=== PATIENT | male | born 1980 | race American Indian/Alaskan Native ===

== ENCOUNTER 2017-09-30 09:21 | Emergency (ER) | payer OTHER ==
[2017-09-30] MEDS ORDERED: Sodium Chloride 0.9% 1,000 ML IV ONE (10:02)
[2017-09-30] MEDS ORDERED: Sodium Chloride 0.9% 1,000 ML ONE (10:28)
[2017-09-30 10:40] LABS: BASO % 0.1 % (0.0-2.0); EOS # 0.1 K/uL (0.0-0.7); EOS % 1.8 % (0.0-4.0); LYMPH # 2.6 K/uL (1.0-4.3); LYMPH % 49.9 % (20.0-40.0); MEAN CORPUSCULAR HGB CONC 32.6 g/dL (33.0-37.0); MEAN PLATELET VOLUME 8.4 fL (7.2-11.7); MONO # 0.4 K/uL (0.0-0.8); MONO % 7.1 % (0.0-10.0); NEUT # 2.1 K/uL (1.8-7.0); NEUT % 41.1 % (50.0-75.0); NRBC % 0.2 % (0.0-2.0); RBC 4.82 Mil/uL (4.40-5.90); RED CELL DISTRIBUTION WIDTH 12.7 % (11.5-14.5); WHITE BLOOD COUNT 5.2 K/uL (4.8-10.8)
[2017-09-30 10:47] LABS: URINE BILIRUBIN NEGATIVE (NEGATIVE); URINE BLOOD NEGATIVE (NEGATIVE); URINE CLARITY Clear (Clear); URINE COLOR Yellow (YELLOW); URINE GLUCOSE (UA) NORMAL (Normal); URINE LEUKOCYTE ESTERASE NEG Leu/uL (Negative); URINE PROTEIN NEGATIVE (NEGATIVE); URINE UROBILINOGEN NORMAL mg/dL (0.2-1.0)
[2017-09-30 10:51] LABS: ALB/GLOB RATIO 1.1 (1.0-2.1); ALBUMIN 4.1 g/dL (3.5-5.0); ALT/SGPT 9 U/L (21-72); AST/SGOT 26 U/L (17-59); BLOOD UREA NITROGEN 11 mg/dL (9-20); CALCIUM 9.3 mg/dl (8.6-10.4); GFR AFRICAN-AMERICAN > 60; GFR NON-AFRICAN AMERICAN > 60; LIPASE 52 U/L (23-300)
[2017-09-30] MEDS ORDERED: Iodixanol 320 MG/ML 100 ML BOTTLE IV ONE (11:33)
[2017-09-30 12:21] VITALS: BP 128/81; PULSE 89; RESP 18; TEMP 98.9; O2SAT 100
--- NOTE | 2017-09-30 12:52 | CT ---
PROCEDURE: CT Abdomen and Pelvis with contrast HISTORY: RLQ tenderness COMPARISON: None. TECHNIQUE: Following the intravenous administration of iodinated contrast material, a CT examination of the abdomen and pelvis performed from the domes of the diaphragms to the symphysis pubis with reformatted datasets provided not only axial but also sagittal and coronal planes. Oral contrast was not administered as per referring physician request. Contrast dose: Visipaque 320, 100 cc Radiation dose: Total exam DLP = 404.98 mGy-cm. This CT exam was performed using one or more of the following dose reduction techniques: Automated exposure control, adjustment of the mA and/or kV according to patient size, and/or use of iterative reconstruction technique. FINDINGS: LOWER THORAX: Unremarkable. LIVER: Mild diffusely diminished density seen throughout the liver are compatible with hepatic steatosis. No definite mass or intrahepatic biliary dilatation is identified. GALLBLADDER AND BILE DUCTS: Unremarkable. PANCREAS: Unremarkable. No gross lesion or ductal dilatation. SPLEEN: Unremarkable. ADRENALS: Unremarkable. No mass. KIDNEYS AND URETERS: Unremarkable. No hydronephrosis. No solid mass. VASCULATURE: Unremarkable. No aortic aneurysm. BOWEL: The stomach appears unremarkable. There is no bowel obstruction appreciated obstruction. Descending colon appears collapsed with a normal caliber appendix. Thickness of the ascending colon wall is difficult to evaluate. Relatively prominent submucosal fat may indicate chronic inflammatory process. Trace pericecal fatty streaking is appreciated approaching the appendix. Appendicitis is not favored. The appendix is not distended and there is no mural thickening associated. Clinically correlate further nevertheless. PERITONEUM: As above. No free intraperitoneal gas or ascites. LYMPH NODES: Unremarkable. No enlarged lymph nodes. BLADDER: Unremarkable. REPRODUCTIVE: Unremarkable. BONES: No acute fracture. OTHER FINDINGS: None. IMPRESSION: Collapse of the ascending colon limits evaluation of potential mural thickening. Mildly prominent submucosal fat at the ascending colon may indicate chronic inflammatory bowel disease. Trace streaky changes seen in the pericecal fat inferiorly, approaching the appendix, but without overt appendicitis pattern. Appendix is normal in caliber with no mural thickening. Consider potential limited segmental colitis proximal ascending colon. Clinical correlation is nevertheless advised. Remainder the examination appears remarkable only for hepatic steatosis.
--- NOTE | 2017-09-30 13:33 | C.PDOC ---
History Of Present Illness 37 y/o male presents to ED with complaints of right sided abdominal pain since this morning. Patient states having bowel movement aggravated pain but reports at this point pain resolved. Patient denies blood in stool, nausea, vomiting, hematuria, fever, dysuria or any other complaints at this time. Chief Complaint (Nursing): Abdominal Pain History Per: Patient History/Exam Limitations: no limitations Onset/Duration Of Symptoms: Hrs Current Symptoms Are (Timing): Still Present Location Of Pain/Discomfort: RUQ, RLQ Past Medical History Reviewed: Historical Data, Nursing Documentation, Vital Signs Vital Signs: Last Vital Signs Temp 98.9 F 09/30/17 12:19 Pulse 89 09/30/17 12:19 Resp 18 09/30/17 12:19 BP 128/81 09/30/17 12:19 Pulse Ox 100 09/30/17 13:38 - Medical History PMH: No Chronic Diseases Surgical History: No Surg Hx Family History: States: No Known Family Hx - Social History Hx Alcohol Use: Yes Hx Substance Use: No - Immunization History Hx Tetanus Toxoid Vaccination: No Hx Influenza Vaccination: No Hx Pneumococcal Vaccination: No Review Of Systems Constitutional: Negative for: Fever, Chills Gastrointestinal: Positive for: Abdominal Pain. Negative for: Nausea, Vomiting Genitourinary: Negative for: Dysuria, Hematuria Skin: Negative for: Rash Physical Exam - Physical Exam Appears: Non-toxic, No Acute Distress Skin: Warm, Dry, No Rash Head: Atraumatic, Normacephalic Oral Mucosa: Moist Neck: Normal ROM, Supple Cardiovascular: Rhythm Regular Respiratory: Normal Breath Sounds, No Rales, No Rhonchi, No Wheezing Gastrointestinal/Abdominal: Soft, No Tenderness, No Guarding, No Rebound Back: No CVA Tenderness Extremity: Normal ROM, Capillary Refill (<2 seconds) Neurological/Psych: Oriented x3, Normal Speech ED Course And Treatment - Laboratory Results Result Diagrams: 09/30/17 10:30 09/30/17 10:30 O2 Sat by Pulse Oximetry: 100 (RA) Pulse Ox Interpretation: Normal Progress Note: Reviewed CT scan with patient. Patient has no further physical complaints and instructed to return to ED (worsening pain, fever, etc.). Patient understood plan and istructed to f.u with clinic. Disposition - Disposition Referrals: [facility] [Outside] [facility] [Outside] Disposition: HOME/ ROUTINE Disposition Time: 12:50 Condition: GOOD Additional Instructions: Thank you for letting us take care of you today. The emergency medical care you received today was directed at your acute symptoms. If you were prescribed any medication, please fill it and take as directed. It may take several days for your symptoms to resolve. Return to the Emergency Department if your symptoms worsen, do not improve, or if you have any other problems. Please contact your doctor or call one of the physicians/clinics you have been referred to that are listed on the Patient Visit Information form that is included in your discharge packet. Bring any paperwork you were given at discharge with you along with any medications you are taking to your follow up visit. Our treatment cannot replace ongoing medical care by a primary care provider (PCP) outside of the emergency department. Thank you for allowing the [facility] team to be part of your care today. Take all your medication as prescribed everyday. Follow up with the clinic in 2-3 days for re-evaluation and further management. Instructions: Acute Abdomen (Belly Pain), Adult (DC) Forms: [employer] (Macanese) - Clinical Impression Clinical Impression: Abdominal pain - Scribe Statement The provider has reviewed the documentation as recorded by the Juan Aibdemetria Mcnair All medical record entries made by the Scribe were at my direction and personally dictated by me. I have reviewed the chart and agree that the record accurately reflects my personal performance of the history, physical exam, medical decision making, and the department course for this patient. I have also personally directed, reviewed, and agree with the discharge instructions and disposition.
== END 2017-09-30 13:30 | disposition home or self-care (01) ==
LOC: C.ER 09:21
DX: R10.9 Unspecified abdominal pain (principal)
CPT/HCPCS: 74177; 80053; 81001; 83690; 85025; 87086; 96360; 99285; J7040; Q9967

== ENCOUNTER 2017-10-21 10:25 | Emergency (ER) | payer OTHER, SELFPAY ==
[2017-10-21 10:50] VITALS: BP 150/90; PULSE 101; RESP 17; TEMP 98.3; O2SAT 98
--- NOTE | 2017-10-21 11:44 | C.PDOC ---
History Of Present Illness 37 year old male presents to the ED for evaluation of intermittent pain to the right sided lower abdominal pain that happens after bowel movement. Patient states when pain comes is stays and radiates towards his rectum and testicles. Patient was seen in the ED for similar presentation had a CT scan done. Due to language barrier, patient only speaks Dominican, patient states he did not understand where to follow up. Patient presents today with no complaints of pain at this time. Patient reports he still has intermittent pain after bowel movements, last time was this morning. Patient denies nausea, vomit, diarrhea, fever, weight loss, change in appetite. Time Seen by Provider: 10/21/17 11:01 Chief Complaint (Nursing): Groin Pain History Per: Patient History/Exam Limitations: language barrier (speaks only Dominican ) Onset/Duration Of Symptoms: Days Current Symptoms Are (Timing): Still Present Location Of Pain/Discomfort: Diffuse (right sided) Radiation Of Pain To:: Other (testicles and rectum) Quality Of Discomfort: "Pain" Alleviating Factors: None Last Bowel Movement: Today Recent travel outside of the [place]: No Additional History Per: Patient Past Medical History Reviewed: Historical Data, Nursing Documentation, Vital Signs Vital Signs: Last Vital Signs Temp 98.3 F 10/21/17 10:41 Pulse 101 H 10/21/17 10:41 Resp 17 10/21/17 10:41 BP 150/90 10/21/17 10:41 Pulse Ox 98 10/21/17 11:44 - Medical History PMH: No Chronic Diseases Surgical History: No Surg Hx Family History: States: Unknown Family Hx - Social History Hx Alcohol Use: Yes Hx Substance Use: No - Immunization History Hx Tetanus Toxoid Vaccination: No Hx Influenza Vaccination: No Hx Pneumococcal Vaccination: No Review Of Systems Constitutional: Negative for: Fever, Chills Gastrointestinal: Negative for: Nausea, Vomiting, Abdominal Pain, Diarrhea, Constipation Genitourinary: Negative for: Dysuria, Hematuria Musculoskeletal: Negative for: Back Pain Skin: Negative for: Rash Physical Exam - Physical Exam Appears: Non-toxic, No Acute Distress Skin: Normal Color, Warm, Dry Head: Atraumatic, Normacephalic Eye(s): bilateral: Normal Inspection Nose: No Discharge Oral Mucosa: Moist Neck: Normal ROM, Supple Chest: Symmetrical Cardiovascular: Rhythm Regular, No Murmur Respiratory: Normal Breath Sounds, No Rales, No Rhonchi, No Wheezing Gastrointestinal/Abdominal: Soft, No Tenderness, No Guarding, No Rebound Back: No CVA Tenderness Extremity: Normal ROM, No Tenderness, No Swelling Neurological/Psych: Oriented x3, Normal Motor, Normal Sensation Gait: Steady ED Course And Treatment O2 Sat by Pulse Oximetry: 98 (ON RA) Pulse Ox Interpretation: Normal Medical Decision Making Medical Decision Making: Patient was D/C home and walked down to the clinic in the Hospital for further follow up with GI. Disposition - Disposition Referrals: [facility] [Outside] Disposition: HOME/ ROUTINE Disposition Time: 11:43 Condition: STABLE Additional Instructions: Follow up in Clinic and with Measurement Advisor within 2-3 days. Return to ED if feel worse. 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 - Scribe Statement The provider has reviewed the documentation as recorded by the Scribe Aristides Jules All medical record entries made by the Scribe were at my direction and personally dictated by me. I have reviewed the chart and agree that the record accurately reflects my personal performance of the history, physical exam, medical decision making, and the department course for this patient. I have also personally directed, reviewed, and agree with the discharge instructions and disposition.
== END 2017-10-21 12:04 | disposition home or self-care (01) ==
LOC: C.ER 10:25
DX: R10.31 Right lower quadrant pain (principal)

== ENCOUNTER 2017-10-28 10:00 | Emergency (ER) | payer SELFPAY ==
[2017-10-28 10:44] VITALS: BMI 26.6
[2017-10-28] MEDS ORDERED: Lidocaine 2% Jelly (Uro-Jet) TOP ONE (11:41)
[2017-10-28] MEDS ORDERED: Lidocaine 2% Jelly (Uro-Jet) ONE (11:48)
--- NOTE | 2017-10-28 12:44 | RAD ---
HISTORY: Rectal pain COMPARISON: No prior. FINDINGS: BOWEL: Normal. No obstruction. No gross free intraperitoneal air seen on this limited study. BONES: Normal. OTHER FINDINGS: None. IMPRESSION: No evidence acute mechanical bowel obstruction.
[2017-10-28 13:04] VITALS: O2SAT 98
--- NOTE | 2017-10-28 13:04 | C.PDOC ---
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 37 year old male presents to the ED for evaluation of rectal pain which began 2 days ago. Patient states that he underwent a colonoscopy at the clinic two days ago. Patient states pain is constant and 8-9 in severity. He notes the pain is worse when he tries to move his bowels, but is able and is having bowel movements. Patient has secondary complaint of swelling and itchiness throughout his entire body. He notes the symptoms worsen at night. Patient denies abdominal pain, blood in stool, history of hemorrhoids. Additional history obtained from Dr. Jain, who clarifies that patient did not undergo a colonoscopy during his clinic visit on 10/26 but underwent a rectal exam and needs GI follow up with colonscopy; patient had bloodwork and stool occult. Time Seen by Provider: 10/28/17 10:58 Chief Complaint (Nursing): GI Problem History Per: Patient, Helmet Binder (Marcela Smith #[id number]) History/Exam Limitations: language barrier (Salvadorean ) Onset/Duration Of Symptoms: Days (2) Current Symptoms Are (Timing): Still Present Additional History Per: Patient Past Medical History Reviewed: Historical Data, Nursing Documentation, Vital Signs Vital Signs: Last Vital Signs Temp 98.1 F 10/28/17 14:33 Pulse 89 10/28/17 14:33 Resp 18 10/28/17 14:33 BP 116/75 10/28/17 14:33 Pulse Ox 98 10/28/17 14:33 - Medical History PMH: No Chronic Diseases Surgical History: No Surg Hx Family History: States: Unknown Family Hx - Social History Hx Alcohol Use: Yes Hx Substance Use: No - Immunization History Hx Tetanus Toxoid Vaccination: No Hx Influenza Vaccination: No Hx Pneumococcal Vaccination: No Review Of Systems Gastrointestinal: Positive for: Rectal Pain. Negative for: Abdominal Pain, Hematochezia Physical Exam - Physical Exam Appears: Non-toxic, No Acute Distress Skin: Normal Color, Warm, Dry Head: Atraumatic, Normacephalic Eye(s): bilateral: Normal Inspection, EOMI Oral Mucosa: Moist Neck: Supple Chest: Symmetrical, No Deformity, No Tenderness Cardiovascular: Rhythm Regular, No Murmur Respiratory: Normal Breath Sounds, No Rales, No Rhonchi, No Wheezing Gastrointestinal/Abdominal: Soft, No Tenderness, No Guarding, No Rebound Rectal: Rectal Tone (normal), No Melena, No Blood Streaked Stool, No Hemorrhoids , Tenderness, No Other (fissures) Extremity: Bilateral: Atraumatic, Normal Color And Temperature, Normal ROM Neurological/Psych: Oriented x3, Normal Speech Gait: Steady ED Course And Treatment O2 Sat by Pulse Oximetry: 98 (on RA) Pulse Ox Interpretation: Normal Medical Decision Making Medical Decision Making: Impression: 37 year old male with rectal pain Plan: * Motrin PO * Lidocaine topical Progress: Patient speaks Salvadorean and appears to be poor historian, he claims to have had colonoscopy but there is no report available for review. I contacted Dr Jain in the clinic at 1203 to discuss his case. She remembers the patient and confirms the patient did not have colonscopy, it was first time visit and had rectal exam with labs and stool occult. The next visit will involve GI care and plan is for outpatient colonoscopy. Patient case discussed with DR House who recommended Abdominal xray to rule out any foreign body or obstruction. Abdomen XR ordered and reviewed showing normal gas pattern, no stool impaction or sign of obstruction. Patient recently had labs and CT, with no acute findings, no clinical indication to repeat analysis. Patient was treated with Motrin PO and Lidocaine topically applied to area. On re-evaluation, the patient was laying on side in no distress. He reports the pain has improved mildly. Again using Salvadorean assistant Marcela I explained to the patient that his labs were normal from clinic visit and his evaluation involved rectal exam and was not surgical procedure, however he will need to follow up and will likely have colonoscopy. Plan is to discharge patient with pain medication, and I recommend Sitz baths. The patient expressed understanding and all questions answered. Will give Benadryl for any itching and rash he may have although not present during ED evaluation. He is stable for discharge Disposition Counseled Patient/Family Regarding: Diagnosis, Need For Followup, Rx Given - Disposition Referrals: Laney Jain MD [Staff Provider] - Disposition: HOME/ ROUTINE Disposition Time: 13:48 Condition: GOOD Additional Instructions: Apply cream to anal area to help with pain Take pain medicine as needed every 6-8 hours Take Benadryl for any itching Go to the clinic for more medical care Appliquez de la crme loni la rgion anale pour soulager la douleur Prenez noemi mdicaments contre la douleur au besoin toutes les 6 8 heures Prenez Benadryl pour noemi dmangeaisons Aller la clinique pour plus de soins mdicaux Prescriptions: DiphenhydrAMINE [Benadryl] 25 mg PO Q6 #20 cap Ibuprofen [Motrin] 600 mg PO Q8 #30 tab Lidocaine [Recticare] 5 gm RC BID #1 dev Instructions: Proctitis, How to Do a Sitz Bath Forms: [employer] (Haitian) Print Language: KOREAN - POA Present On Arrival: None - Clinical Impression Clinical Impression: Rectal or anal pain - 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 - Scribe Statement The provider has reviewed the documentation as recorded by the Scribe (Bridget Machado) All medical record entries made by the Scribe were at my direction and personally dictated by me. I have reviewed the chart and agree that the record accurately reflects my personal performance of the history, physical exam, medical decision making, and the department course for this patient. I have also personally directed, reviewed, and agree with the discharge instructions and disposition.
[2017-10-28 14:36] VITALS: BP 116/75; PULSE 89; RESP 18; TEMP 98.1
== END 2017-10-28 14:35 | disposition home or self-care (01) ==
LOC: C.ER 10:00
DX: K62.89 Other specified diseases of anus and rectum (principal)